=== PATIENT | female | born 1985 | race African-American/Black ===

== ENCOUNTER 2019-11-28 07:51 | Emergency (ER) | payer OTHER ==
[2019-11-28 07:58] VITALS: BP 135/93
--- NOTE | 2019-11-28 08:11 | ED Physician Documentation ---
PD HPI URI - Stated complaint Stated Complaint: SOA - Chief complaint Chief Complaint: Resp - History obtained from History obtained from: Patient - History of Present Illness Timing - onset: How many weeks ago (2) Timing duration: Weeks (2) Timing details: Gradual onset, Waxing and waning Associated symptoms: Nasal congestion, Dry cough, Dyspnea. No: Fever, Chills, Sore throat, Productive cough, Hemoptysis, Chest pain, Bilateral edema Contributing factors: COPD / asthma (seasonal asthma, but does not have inhaler at this time.). No: Sick contact, Travel Improves by: Rest Worsened by: Activity Similar symptoms before: Diagnosis (asthma/seasonal allergies) Recently seen: Not recently seen Review of Systems Constitutional: denies: Fever, Chills, Myalgias Eyes: denies: Irritation Nose: reports: Rhinorrhea / runny nose. denies: Congestion Throat: denies: Sore throat Cardiac: denies: Chest pain / pressure, Palpitations, Pedal edema, Calf pain Respiratory: reports: Dyspnea, Cough (mild), Wheezing GI: denies: Nausea, Vomiting, Diarrhea Skin: denies: Rash, Lesions Neurologic: denies: Generalized weakness, Near syncope PD PAST MEDICAL HISTORY - Past Medical History Past Medical History: No Respiratory: Asthma Neuro: None Endocrine/Autoimmune: None - Past Surgical History Past Surgical History: Yes HEENT: Tonsil/Adenoidectomy - Present Medications Home Medications: Ambulatory Orders Medication Instructions Recorded Confirmed Albuterol Sulfate [Albuterol 2 puffs IH QID #1 hfa.aer.ad 11/28/19 Sulfate Hfa] Cetirizine [ZyrTEC] 10 mg PO DAILY #30 tablet 11/28/19 dexAMETHasone [Decadron] 4 mg PO DAILY #5 tablet 11/28/19 - Allergies Allergies/Adverse Reactions: Allergies Allergy/AdvReac Type Severity Reaction Status Date / Time No Known Drug Allergies Allergy Verified 11/28/19 07:58 - Social History Does the pt smoke?: No Smoking Status: Never smoker Does the pt drink ETOH?: No Does the pt have substance abuse?: No - Immunizations Immunizations are current?: Yes PD ED PE NORMAL - Vitals Vital signs reviewed: Yes - General General: Alert and oriented X 3, No acute distress, Well developed/nourished - HEENT HEENT: Moist mucous membranes, Pharynx benign - Neck Neck: Supple, no meningeal sign, No adenopathy - Cardiac Cardiac: RRR, No murmur - Respiratory Respiratory: No: Clear bilaterally (mostly clear with just mild exp wheezing scattered. ) - Abdomen Abdomen: Soft, Non tender - Derm Derm: Normal color, Warm and dry - Extremities Extremities: No deformity, Normal ROM s pain, No edema, No calf tenderness / cord - Neuro Neuro: Alert and oriented X 3, No motor deficit, Normal speech Results - Vitals Vitals: Vital Signs - 24 hr 11/28/19 07:55 Temperature 36.3 C L Heart Rate 85 Respiratory 18 Rate Blood Pressure 135/93 H O2 Saturation 96 Oxygen O2 Source Room air - Rads (name of study) chest xray Radiology: Prelim report reviewed (no infiltrates nor acute process), See rad report PD MEDICAL DECISION MAKING - ED course Complexity details: considered differential, d/w patient Departure - Departure Disposition: 01 Home, Self Care Clinical Impression: Dyspnea Qualifiers: Dyspnea type: shortness of breath Qualified Code(s): R06.02 - Shortness of breath Exacerbation of asthma Qualifiers: Asthma severity: mild Asthma persistence: intermittent Qualified Code(s): J45.21 - Mild intermittent asthma with (acute) exacerbation Condition: Stable Record reviewed to determine appropriate education?: Yes Instructions: ED Reactive Airway Disease Follow-Up: [facility] [Primary Care Provider] - Prescriptions: Albuterol Sulfate [Albuterol Sulfate Hfa] 2 puffs IH QID #1 hfa.aer.ad Cetirizine [ZyrTEC] 10 mg PO DAILY #30 tablet dexAMETHasone [Decadron] 4 mg PO DAILY #5 tablet Comments: Your vital signs including oxygenation are good. Your chest x-ray is clear. This does sound more likely to be environmental allergies with some asthma. Use the albuterol inhaler 2 puffs 3-4 times a day regularly for a few days and then as needed. Decadron steroid daily for 5 days to decrease airway inflammation. Cetirizine antihistamine daily for a few weeks Recheck if worsening symptoms to include cough fever or worse trouble breathing. Otherwise recheck if your shortness of breath has not improved over the next few days. Your Denia test result will return in several days and you will be called with the result Discharge Date/Time: 11/28/19 09:17
[2019-11-28] MEDS ORDERED: CHERRY SYRUP 10 ML UDC PO ONE (08:39)
[2019-11-28] MEDS ORDERED: DEXAMETHASONE 10 MG/ML VIAL PO STA (08:39)
[2019-11-28] MEDS ORDERED: CETIRIZINE 10 MG TABLET PO STA (08:39)
--- NOTE | 2019-11-28 09:20 | XRAY Report ---
Reason: dyspnea' asthma Procedure Date: 11/28/2019 Accession Number: [id number] / [id number] Procedure: XR - Chest 1 View X-Ray CPT Code: 18255 Final Report FULL RESULT: EXAM: CHEST RADIOGRAPHY EXAM DATE: 11/28/2019 08:59 AM. CLINICAL HISTORY: Dyspnea. COMPARISON: None. TECHNIQUE: 1 view. FINDINGS: Lungs/Pleura: No focal lung consolidation. Minimal bronchial wall thickening centrally. No pleural effusion. No pneumothorax. Mediastinum: Cardiac silhouette size appears unremarkable. Other: None. IMPRESSION: No focal lung consolidation or pleural effusions. Minimal bronchial wall thickening centrally, suggesting reactive airway disease versus viral/atypical respiratory infection in the proper clinical setting. RADIA
== END 2019-11-28 09:17 | disposition home or self-care (01) ==
LOC: ED 07:51
DX: J45.21 Mild intermittent asthma with (acute) exacerbation (principal)
CPT/HCPCS: 71045; 81599; 99284; A9270

== ENCOUNTER 2020-02-24 16:00 | Emergency (ER) | payer OTHER ==
--- NOTE | 2020-02-24 17:30 | ED Physician Documentation ---
PD HPI CHEST PAIN - Stated complaint Stated Complaint: CP/ANXIETY - Chief complaint Chief Complaint: Cardiac - History obtained from History obtained from: Patient - History of Present Illness Timing - onset: How many weeks ago (2) Timing - onset during: Rest Timing - duration: Seconds Timing - details: Abrupt onset, Now resolved, Waxing and waning Quality: Sharp, Pain Location: Left chest, Right chest Radiation: No: Jaw, Neck, Back, Abdominal, Left upper extremity, Right upper extremity Worsened by: Palpation. No: Exertion, Inspiration, Movement Associated symptoms: No: Shortness of air, Diaphoresis, Nausea, Vomiting, Feeling faint / dizzy, General Weakness, Palpitations, Cough Similar symptoms before: Has not had sx before Recently seen: Not recently seen - Additional information Additional information: 34-year-old female with a history of asthma and anxiety has developed episodic pain in her chest that she describes as a sharp pain above the left or right breast lasting only a second. She has had a similar pain in the left lateral chest wall also lasting a second in the 3 areas are randomly involved. She has multiple episodes per day she has had daily episodes. She is not found modifying factors that are specific and helpful. Review of Systems Constitutional: denies: Fever Eyes: denies: Decreased vision Ears: reports: Ear pain (left) Nose: denies: Rhinorrhea / runny nose, Congestion Throat: denies: Sore throat Cardiac: reports: Chest pain / pressure. denies: Palpitations, Pedal edema, Calf pain Respiratory: denies: Dyspnea, Cough, Wheezing GI: denies: Abdominal Pain, Nausea, Vomiting : denies: Dysuria, Frequency Skin: denies: Rash Musculoskeletal: denies: Neck pain, Back pain, Extremity pain Neurologic: reports: Numbness (To the left hand associated with rapid breathing). denies: Generalized weakness, Focal weakness Psychiatric: reports: Anxiety PD PAST MEDICAL HISTORY - Past Medical History Past Medical History: Yes Respiratory: Asthma Neuro: None Endocrine/Autoimmune: None - Past Surgical History Past Surgical History: Yes HEENT: Tonsil/Adenoidectomy - Present Medications Home Medications: Ambulatory Orders Medication Instructions Recorded Confirmed Albuterol Sulfate [Albuterol 2 puffs IH QID #1 hfa.aer.ad 11/28/19 Sulfate Hfa] Cetirizine [ZyrTEC] 10 mg PO DAILY #30 tablet 11/28/19 dexAMETHasone [Decadron] 4 mg PO DAILY #5 tablet 11/28/19 hydrOXYzine PAMOATE [Vistaril] 25 mg PO Q6H PRN #20 capsule 02/24/20 - Allergies Allergies/Adverse Reactions: Allergies Allergy/AdvReac Type Severity Reaction Status Date / Time No Known Drug Allergies Allergy Verified 02/24/20 16:17 - Social History Does the pt smoke?: No Smoking Status: Never smoker Does the pt drink ETOH?: No Does the pt have substance abuse?: No - Immunizations Immunizations are current?: Yes - POLST Patient has POLST: No PD ED PE NORMAL - Vitals Vital signs reviewed: Yes (Normal) - General General: Alert and oriented X 3, No acute distress, Well developed/nourished - HEENT HEENT: Atraumatic, PERRL, EOMI, Ears normal, Moist mucous membranes, Pharynx benign, Dentition benign - Neck Neck: Supple, no meningeal sign, No bony TTP - Cardiac Cardiac: RRR, No murmur - Respiratory Respiratory: No respiratory distress, Clear bilaterally, Other (There is an area at the lateral left chest wall that is specifically tender. The anterior chest wall is not specifically tender) - Abdomen Abdomen: Normal bowel sounds, Soft, Non tender, Non distended, No organomegaly - Back Back: No CVA TTP, No spinal TTP - Derm Derm: Normal color, Warm and dry, No rash - Extremities Extremities: No deformity, No edema - Neuro Neuro: Alert and oriented X 3, calciner feeder 2-12 intact, No motor deficit, No sensory deficit, Normal speech Eye Opening: Spontaneous Motor: Obeys Commands Verbal: Oriented GCS Score: 15 - Psych Psych: Normal mood, Normal affect Results - Vitals Vitals: Vital Signs - 24 hr 02/24/20 02/24/20 16:03 17:01 Temperature 36.6 C Heart Rate 90 88 Respiratory 16 12 Rate Blood Pressure 129/80 124/88 H O2 Saturation 98 100 Oxygen O2 Source Room air - EKG (time done) 1610 Rate: Rate (enter#) (89) Rhythm: NSR Ischemia: Normal ST segments Compare to prior EKG: Old EKG unavailable Computer interpretation: Agree with computer - Labs Labs: Laboratory Tests 02/24/20 02/24/20 02/24/20 17:53 17:53 17:53 WBC 5.9 RBC 4.51 Hgb 13.2 Hct 39.7 MCV 88.0 MCH 29.3 MCHC 33.2 RDW 12.2 Plt Count 363 MPV 8.9 Neut # (Auto) 3.7 Lymph # (Auto) 1.8 Ritchie # (Auto) 0.4 Eos # (Auto) 0.1 Baso # (Auto) 0.0 Absolute Nucleated RBC 0.00 Nucleated RBC % 0.0 Sodium 137 Potassium 4.1 Chloride 102 Carbon Dioxide 26 Anion Gap 9.0 BUN 5 L Creatinine 0.8 Estimated GFR (MDRD) 101 Glucose 91 Calcium 9.0 Total Bilirubin 0.7 AST 14 ALT 12 Alkaline Phosphatase 92 Troponin I High Sens < 2.3 L Total Protein 7.8 Albumin 3.9 Globulin 3.9 Albumin/Globulin Ratio 1.0 Lipase 23 - Rads (name of study) chest Radiology: Prelim report reviewed (Impression: No acute cardiopulmonary findings.), EMP read indepedently, See rad report PD MEDICAL DECISION MAKING - ED course Complexity details: reviewed old records, reviewed results, re-evaluated patient, considered differential, d/w patient ED course: 34 y/o female with a history of asthma and anxiety has some underlying anxiety and she is having brief chest pains. Her work-up is completely unremarkable and I have offered the patient hydroxizine to try for the anxiety. Departure - Departure Disposition: 01 Home, Self Care Clinical Impression: Atypical chest pain, Anxiety Condition: Stable Instructions: ED Stress React, ED Chest Pain Atypical Unkn Cause, ED H yperventilation Syndrome Follow-Up: [facility] [Provider Group] Prescriptions: hydrOXYzine PAMOATE [Vistaril] 25 mg PO Q6H PRN #20 capsule PRN Reason: Anxiety
[2020-02-24 17:59] LABS: BASOPHILS % (AUTO) 0.5 %; EOSINOPHILS # (AUTO) 0.1 10^3/uL (0.0-0.7); HGB - HEMOGLOBIN 13.2 g/dL (12.0-16.0); LYMPHOCYTES # (AUTO) 1.8 10^3/uL (1.5-3.5); LYMPHOCYTES % (AUTO) 30.5 %; MEAN CORPUSCULAR HEMOGLOBIN 29.3 pg (27.0-31.0); MEAN CORPUSCULAR HGB CONC 33.2 g/dL (32.0-36.0); MEAN PLATELET VOLUME 8.9 fL (7.9-10.8); MONOCYTES # (AUTO) 0.4 10^3/uL (0.0-1.0); MONOCYTES % (AUTO) 6.2 %; NEUTROPHILS # (AUTO) 3.7 10^3/uL (1.5-6.6); NEUTROPHILS % (AUTO) 61.6 %; PLT - PLATELET COUNT 363 10^3/uL (130-450); RED BLOOD COUNT 4.51 10^6/uL (4.20-5.40); RED CELL DISTRIBUTION WIDTH 12.2 % (12.0-15.0); WHITE BLOOD COUNT 5.9 x10^3/uL (4.8-10.8)
--- NOTE | 2020-02-24 18:08 | XRAY Report ---
PROCEDURE: Chest 2 View X-Ray INDICATIONS: chest pains TECHNIQUE: 2 view(s) of the chest. COMPARISON: None. FINDINGS: Surgical changes and devices: None. Lungs and pleura: No pleural effusions or pneumothorax. Lungs are clear. Mediastinum: Mediastinal contours are normal. Heart size is normal. Bones and chest wall: No suspicious bony abnormalities. Soft tissues appear unremarkable. IMPRESSION: No acute cardiopulmonary findings. Reviewed by: Avelina Walters MD on 02/24/2020 6:07 PM PDT Approved by: Avelina Walters MD on 02/24/2020 6:07 PM PDT Station ID: [id number]
[2020-02-24 18:13] LABS: ALBUMIN 3.9 g/dL (3.2-5.5); BILIRUBIN,TOTAL 0.7 mg/dL (0.2-1.0); CREATININE 0.8 mg/dL (0.4-1.0); TOTAL PROTEIN 7.8 g/dL (6.7-8.2)
[2020-02-24 19:16] VITALS: BP 123/88
== END 2020-02-24 19:15 | disposition home or self-care (01) ==
LOC: ED 16:00
DX: R07.89 Other chest pain (principal); F41.9 Anxiety disorder, unspecified; J45.909 Unspecified asthma, uncomplicated
CPT/HCPCS: 36415; 71046; 80053; 83690; 84484; 85025; 93005; 99284

== ENCOUNTER 2020-06-08 13:09 | Outpatient (CLI) | payer OTHER ==
[2020-06-08 13:57] VITALS: BP 108/74
--- NOTE | 2020-06-08 13:57 | SLEEP CARE CONSULTATION ---
Information from patient questionnaire entered by Una Dumont. I have reviewed and concur with the information entered by Una Dumont. This document represents the service I personally performed and the decisions made by me, Violeta Khan ARNP. History of Present Illness Service Date and Time: 06/08/2020 1309 Reason for Visit: New patient Chief Complaint: reports: Unrefreshed sleep, Snoring, Excessive daytime sleepiness, Observed pauses in breathing, Fatigue, Frequent awakenings at night. denies: Insomnia, Other Date of Onset: about 2 years Usual bedtime: 10 pm; weekends a little different Time it takes to fall asleep: about 60 minutes Snores at night: Yes (sometimes) Observed to quit breathing while asleep: No Sleeps alone due to snoring: No Number of times waking at night: 1-2 Reasons for waking at night: reports: Gasping for air (feels like she is trying to catch her breath), Bathroom. denies: Choking, Snoring Toss, Turn, or Twitch while sleeping: Yes Recalls having dreams: Yes (sometimes) Usually gets out of bed at: 5:45 am; up by 0700 on weekends Feels refreshed in the morning: No Morning headache: No Sleepy or fatigued during the day: Yes Ever fallen asleep while driving: No (no drowsy driving) Takes day naps: No Dreams during day naps: No Prior sleep studies: No Additional HPI information: I had the pleasure of seeing GURPREET VITAL today regarding the possibility of her having a sleep disorder. Her current complaints are snoring, observed pauses in breathing, frequent night awakenings, unrefreshed sleep, fatigue and excessive daytime sleepiness. She is not getting the best sleep and waking up in the middle of night. She wakes up and feels like she did not sleep at all and is tired throughout the day. She states she has depression but is not on any medications. Her father snored but 20 years ago from a heart attack when in his 40s. - Parasomnia Symptoms Ever been unable to move upon waking from sleep: Yes (at least monthly at sleep onset and when awakening nightly) Walks in sleep: No Talks in sleep: No Ever acted out dreams in sleep: No Ever felt weak in the knees when startled or emotional: Yes Bothered by creepy, crawly, restless sensations in legs: No Problems with memory or concentration: Yes (both) Subjective Initial [place] Sleepiness Scale score: 7 (in 2020) Past Medical History Past Medical History: reports: Anxiety, Depression. 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 Have you smoked in the past 12 months: No Alcohol use: No Caffeine use: No Family History Family history of sleep disordered breathing: No (not to my knowledge) Family Hx Sleep Apnea: Father: Snoring Allergies and Home Medications Drug allergies reviewed: Yes (NKDA) Home medication list reviewed: Yes (no medications) Review of Systems Cardiovascular: denies: high blood pressure, palpitations, chest pain, irregular heart rate or pulse, leg or foot swelling Respiratory: denies: shortness of breath Gastrointestinal: denies: heartburn, difficulty swallowing Urinary: denies: incontinence, frequency Neurological: denies: headaches, seizure, head trauma, speech dysfunction, gait or balance problems, fainting or unconsciousness Psychiatric: reports: anxiety, depression. denies: Attention Deficit Hyperactiv ity, mood disorder, claustrophobia Ear/Nose/Throat: reports: nasal congestion, sinus problems, wisdom teeth removed. denies: nose bleeds, dry mouth/throat, injury to nose, tonsillectomy (adenoids removed) Endocrine: denies: thyroid disease Musculoskeletal: denies: muscle pain or cramping Immunologic: reports: sneezing, allergies to food or environment (seasonal and environmental) Physical Exam Blood Pressure: 108/74 Cuff size: wrist Heart Rate: 92 O2 Saturation: 97 Height: 5 ft 7 in Weight: 221 lb Body Mass Index: 34.6 BMI Classification: Obese Neck circumference: 13.5 (inches) HEENT: No craniofacial malformation Nostrils: patent to airflow Turbinates: normal Septum: deviated right Mouth and throat: narrow oropharynx Soft palate: normal Hard palate: arched Uvula: normal Uvula visualization: 25% Mallampati Class III Tongue: enlarged in size with teeth johnson on lateral edges Tonsils: 1+ Chin and jaw: normal size and position Neck: normal w/o lymphadenopathy or thyromegaly Heart: regular rate and rhythm Lungs: clear bilaterally Impression and Plan 1. Suspected Obstructive Sleep Apnea-Hypopnea Syndrome, as suggested by a history of loud and irregular snoring, observed cessation of breath while asleep, gasping or choking in sleep, frequent awakening during the night, unrefreshed sleep, cognitive impairment, and excessive daytime sleepiness. I reviewed with patient that a narrow oropharynx and obesity are common predisposing factors for obstructive sleep apnea-hypopnea syndrome. I recommend proceeding to polysomnography to confirm the diagnosis and to assess severity. If the patient has significant sleep disordered breathing, a manual CPAP titration study will also be performed to find the optimal treatment pressure. I informed the patient of what the sleep studies involve and after some discussion, obtained agreement to proceed. The pathophysiology of obstructive sleep apnea-hypopnea syndrome was discussed with the patient and health risks of cardiovascular and cerebrovascular disease if not treated. AAS brochure for obstructive sleep apnea-hypopnea syndrome given and reviewed. Risks of drowsy driving discussed in detail and patient advised to avoid long distance driving and to pin puller at the first sign of drowsiness. Patient agreed to plan. * Schedule polysomnography +- manual CPAP titration study. * Avoid long distance driving or driving when feeling sleepy. * Avoid alcohol, sedative and muscle relaxant around bedtime. * Attempt to lose weight. * Review instructions provided by trained office staff on how to prepare for the sleep study. * Return for follow-up after sleep study completed. Counseling Topics: Weight loss health impact Time Spent with Patient (minutes): 32
== END 2020-06-08 13:10 | disposition home or self-care (01) ==
LOC: SC 13:09
PROVIDERS: ATTEND Nurse Practitioner Family
DX: R06.83 Snoring (principal); G47.8 Other sleep disorders; G47.10 Hypersomnia, unspecified; R06.81 Apnea, not elsewhere classified; E66.9 Obesity, unspecified; F32.9 Major depressive disorder, single episode, unspecified; Z68.34 Body mass index [BMI] 34.0-34.9, adult
CPT/HCPCS: 99203; 99212

== ENCOUNTER 2020-07-11 19:32 | Outpatient (CLI) | payer OTHER | END 2020-07-11 19:33 | disposition home or self-care (01) | LOC: SC 19:32 | PROVIDERS: ATTEND Nurse Practitioner Family | DX: R06.83 Snoring (principal); G47.10 Hypersomnia, unspecified; R06.81 Apnea, not elsewhere classified; G47.8 Other sleep disorders; E66.9 Obesity, unspecified; Z68.34 Body mass index [BMI] 34.0-34.9, adult | CPT/HCPCS: 95810 ==

== ENCOUNTER 2020-07-18 08:28 | Outpatient (CLI) | payer OTHER ==
--- NOTE | 2020-07-18 08:55 | SLEEP CARE CONSULTATION ---
Information from patient questionnaire entered by Una Dumont. I have reviewed and concur with the information entered by Una Dumont. This document represents the service I personally performed and the decisions made by , Violeta Khan ARNP. History of Present Illness Service Date and Time: 07/18/2020827 Initial [place] Sleepiness Scale score: 7 (in 2019) Current [place] Sleepiness Scale score: 8 Additional HPI information: GURPREET VITAL returns for follow up and results of the recently performed polysomnography. The patient was informed of the following findings: Patient had no significant sleep disordered breathing with an AHI of 3.2 and rojelio oxygen saturation of 88%. I explained the pathophysiology behind obstructive sleep apnea. Patient does not have sleep apnea and was advised how weight gain could increase the risk of developing sleep apnea in the future. I strongly encouraged the patient to lose weight. Patient does not have significant sleep disordered breathing but has elevated AHI in supine position so advised positional therapy. Methods to achieve positional management therapy were discussed; such as, positioning with pillows, wearing a T-shirt with tennis balls sewn into the back, Rematee shirt, Zzomba belt and Slumberbump belt. Pamphlets provided on how to obtain the commercially available products. Patient has light snoring. Snoring can be reduced by weight loss. Weight loss is best achieved with diet consult. Patient instructed to contact PCP for referral. Snoring can also be treated with an oral appliance from a dentist. Advised to check insurance coverage. In addition, an ENT evaluation can be do to see if other treatment is indicated. Patient counseled not drink alcohol less than 4 hours before bedtime as it can increase snoring and apnea. Patient was cautioned about risks of drowsy driving until sleepiness symptoms resolve. Sleep Study - Results Type of Sleep Study: Polysomnography Prior sleep studies: No Polysomnography/Home Sleep Study results: IMPRESSION: The quality of the study is good. The patient had normal sleep efficiency. Except for mild sleep fragmentation, the sleep architecture was normal as well. Respiratory monitoring showed no significant sleep disordered breathing sleep-disordered breathing (AHI = 3.2) or hypoxia (rojelio oxygen saturation of 88%). The few respiratory events occurred almost exclusively during supine sleep (supine AHI = 11.3; non-supine = 1.24). Snore was light in intensity. There was no significant periodic leg movement of sleep. Cardiac rhythm was normal sinus rhythm without significant arrhythmia. No abnormal behavior (parasomnia) observed during the night. Allergies and Home Medications Drug allergies reviewed: Yes (NKDA) Home medication list reviewed: Yes (no changes) Review of Systems Review of systems same as previous: Yes (no changes) Physical Exam Heart Rate: 88 O2 Saturation: 98 Height: 5 ft 7 in Weight: 215 lb Body Mass Index: 33.6 BMI Classification: Obese Impression and Plan Snoring but no significant sleep disordered breathing. Patient advised that often weight loss will reduce snoring as well as apnea risk. An oral appliance can also be used for snoring. This would require a dental consultation. Patient cautioned not to use other online appliances as can cause bite issues. A list of accredited dentists in area and one local dentist who makes oral appliances given. Patient is advised to check if insurance will cover. An ENT consult can also be helpful to determine if any other treatment is an option. Patient also advised to inform doctor of her mild obstructive sleep apnea with an supine AHI of 11.3 prior to procedures or surgery to reduce risk of complications. She voiced understanding. * Attempt to lose weight * Avoid alcohol consumption near bedtime * The patient is cautioned about driving until sleepiness is completely resolved. * Return as needed. Counseling Topics: Weight loss health impact Visit Type: In Office Time Spent with Patient (minutes): 16 Provider Statement: I spent 100% of the Face to Face Visit with the patient with greater than 50% spent counseling the patient and coordination of care.
== END 2020-07-18 08:29 | disposition home or self-care (01) ==
LOC: SC 08:28
PROVIDERS: ATTEND Nurse Practitioner Family
DX: R06.83 Snoring (principal); E66.9 Obesity, unspecified; Z68.33 Body mass index [BMI] 33.0-33.9, adult
CPT/HCPCS: 99212; 99213